=== PATIENT | female | born 1970 | race Native Hawaiian/Other Pacific Islander ===

== ENCOUNTER → 2018-02-07 | Outpatient (CLI) | payer BC ==
--- NOTE | 2018-02-07 11:31 | MM ---
Reason for exam: clinical finding. History: Family history of breast cancer in maternal grandmother at age 60. Indicated problem(s): lump or thickening in the right breast. Physical Findings: Nurse Summary: 1.5cm nodule in the right breast at 10 o'clock (nurse mj). MG Diagnostic Mammo w CAD JUNE Bilateral CC and MLO view(s) were taken. XCCL view(s) were taken of the right breast. No prior studies available for comparison. The breast tissue is heterogeneously dense. This may lower the sensitivity of mammography. Finding #1: There is an intermediate concern, suspicious 13 mm high density, spiculated irregular mass located 11 cm from the nipple in the 10 o'clock upper outer quadrant, axillary tail position of the right breast. Highly suggestive for malignancy. Finding #2: There are intermediate concern, suspicious, fine, grouped/clustered calcifications in the 10 o'clock upper outer quadrant of the right breast consistent with the spiculated mass, 11 cm from the nipple. These results were verbally communicated with the patient and result sheet given to the patient on 02/07/18. ASSESSMENT: Incomplete: need additional imaging evaluation, BI-RAD 0 RECOMMENDATION: Ultrasound of the right breast.
--- NOTE | 2018-02-07 11:37 | USB ---
Reason for exam: clinical finding. History: Family history of breast cancer in maternal grandmother at age 60. US Breast RT Right complete breast ultrasound includes all four quadrants, the retroareolar region and axilla. Finding demonstrates a 1.5 x 1.3 x 1.4cm solid, hypoechoic, vascular lesion at 10 o'clock that correlates with mammographic finding for which a biopsy is recommended, a 1.6 x 1.0 x 2.3cm questionable reactive node at 10 o'clock, a 2.2 x 1.9 x 1.5cm questionable reactive node at the axilla tail, a 1.7 x 1.4 x 1.6cm questionable reactive node at the axilla tail, a 0.6 x 1.1cm lesion between the suspicious mass and the axillary lymph nodes at 10 o'clock and a cystic cluster at 2 o'clock. These results were verbally communicated with the patient and result sheet given to the patient on 02/07/18. ASSESSMENT: Highly suggestive of malignancy, BI-RAD 5 RECOMMENDATION: Ultrasound core biopsy of the right breast. Called Dr. Nielsen with mammographic findings and has scheduled an appointment for the patient for 02/08/18 at 3:[address] Lee. PRELIMINARY REPORT CALLED AND FAXED TO DR. LEE ON 02/07/18.
== END | disposition home or self-care (01) ==
LOC: RADMAMWWP 08:11
PROVIDERS: ATTEND Family Medicine
DX: N63.21 Unspecified lump in the left breast, upper outer quadrant (principal); R92.8 Other abnormal and inconclusive findings on diagnostic imaging of breast
CPT/HCPCS: 77066

== ENCOUNTER → 2018-02-08 | Outpatient (CLI) | payer BC ==
[2018-02-08 16:08] VITALS: BP 153/81; PULSE 100; TEMP 98.1; BMI 25.4
--- NOTE | 2018-02-08 16:31 | P.GSHP ---
History of Present Illness H&P Date: 02/08/18 The patient is a 47-year-old white female who notes that she felt a mass in her right breast several months ago. She thought this was most likely cystic in nature however when it did not go away she had a radiographic evaluation performed. She underwent a bilateral mammogram as well as a right breast ultrasound. On the bilateral mammogram in lesion of concern was noted in the right breast at the 10 o'clock position in the upper quadrant. Additionally she had an ultrasound performed which revealed this area as well as questionable lymphadenopathy. There is also question is whether there is a second lesion in proximity to the lesion seen on mammogram. The patient does have some pain in this area. She has no abnormal nipple discharge or changes of concern. She has no masses in the left breast. Past surgical history: 1. 2. Uterine ablation Past medical history: None Family history: 1. Maternal grandmother breast cancer postmenopausal Menstrual history Menarche: 11 : 2, first at 18, breast fed: none menopause: Irregular periods for which she had an ablation however she did continue to have menstrual periods after the ablation but they are irregular Review of systems: HEENT: Negative Lungs: Negative Heart: Negative GI: Negative : As above Musculoskeletal:arthritis in hands, carpel tunnel Neurologic: Negative Skin: none social history: smoke: 20 years half a pack per day Alcohol: Drugs: Negative - Constitutional Comment: hot flashes at times Constitutional: Denies chills, Denies fever - EENT Eyes: bilateral as per HPI Ears: deny: decreased hearing, ear discharge, earache, tinnitus Ears, nose, mouth and throat: Reports headache, Reports nasal discharge, Reports sinus pain, Reports sinus pressure - Breasts Breasts: bilateral: as per HPI - Cardiovascular Cardiovascular: Denies chest pain, Denies shortness of breath - Respiratory Comment: smoker Respiratory: Denies cough, Denies 7 - Gastrointestinal Gastrointestinal: Denies abdominal pain, Denies diarrhea, Denies nausea, Denies vomiting - Genitourinary (Female) Genitourinary: Denies dysuria, Denies hematuria - Menstruation Menstruation: Reports as per HPI - Musculoskeletal Comment: arthritis in her hands - Integumentary Integumentary: Denies pruritus, Denies rash - Neurological Neurological: Denies numbness, Denies weakness - Psychiatric Psychiatric: Reports anxiety, Reports depression - 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 History of Any Multi-Drug Resistant Organisms: None Reported Past Surgical History: Section, Tubal Ligation, Uterine Ablation Past Anesthesia/Blood Transfusion Reactions: No Reported Reaction, Motion Sickness Past Psychological History: No Psychological Hx Reported Smoking Status: Current every day smoker Past Alcohol Use History: None Reported Past Drug Use History: None Reported - Past Family History Mother Family Medical History: No Reported History Additional Family Medical History / Comment(s): MATERNAL GRANDMOTHER BILATERAL BREAST MASTECTOMY Medications and Allergies Home Medications Medication Instructions Recorded Confirmed Type Ibuprofen [Motrin] 800 mg PO Q8HR PRN 05/15/14 05/15/14 History Iron Injections(Unknown Dose) 1 injection IM DIRECTED 05/15/14 05/15/14 History Percocet(Unknown Dose) 1 tab PO DIRECTED PRN 05/15/14 05/15/14 History Zantac(Unknown Dose) 1 tab PO DAILY PRN 05/15/14 05/15/14 History Allergies Allergy/AdvReac Type Severity Reaction Status Date / Time No Known Allergies Allergy Verified 05/15/14 12:38 Surgical - Exam - General well developed, well nourished, moderate distress - Eyes normal ocular movement - ENT normal pinna, normal nares, normal mucosa, no hearing loss - Neck no masses, trachea midline, no lymphadectomy, no venous distension - Respiratory normal respiratory effort, clear to auscultation - Cardiovascular Rhythm: regular Heart Sounds: normal: S1, S2 - Abdomen Abdomen: soft, non tender, no guarding, no rigid, no rebound
== END | disposition home or self-care (01) ==
LOC: WWCWWP 15:32
PROVIDERS: ATTEND Surgery
DX: Z53.9 Procedure and treatment not carried out, unspecified reason (principal)

== ENCOUNTER → 2018-02-12 | Day surgery (SDC) | payer BC ==
[2018-02-12 09:20] VITALS: RESP 16; TEMP 97.7; BMI 25.0
[2018-02-12 12:18] VITALS: BP 109/66; PULSE 80
--- NOTE | 2018-02-12 13:44 | USB ---
EXAMINATION TYPE: US biopsy breast VAD RT, US breast needle core RT, US breast needle core addl RT, MG diagnostic mammo RT wo CAD DATE OF EXAM: 02/12/2018 CLINICAL HISTORY: R92.8 ABN MAMMO. TECHNIQUE: Three site ultrasound guided core biopsy of right breast. COMPARISON: 02/07/2018 FINDINGS: The procedure of ultrasound guided core biopsy was explained to the patient. Benefits, alternatives, and risks were discussed. An informed consent was then obtained. Preprocedural timeout was performed. Preprocedural scanning was performed. There is redemonstration of two sonographic masses, the first at the 10:00 position corresponding to the palpable abnormality and previously measured at 1.6 x 1.0 x 2.3 cm on the prior exam of 02/07/2018 and the second at the 11:00 position adjacent to multiple abnormal lymph nodes. Both these masses contain microcystic calcifications and are suspicious. Initial image demonstrates that these are located over 5.8 cm apart from one end of the mass to the other. Therefore decision was made to biopsy both of these masses in addition to an abnormal axillary node. Site A (palpable abnormality-1.6 x 1.0 x 2.3 cm mass at the 10:00 position within the right breast): The patient was placed in supine positioning for imaging and for the procedure. The overlying skin was prepped and draped in usual sterile fashion. 10 cc of lidocaine buffered with bicarbonate was used as anesthetic into the skin and subcutaneous tissue in addition to 8 cc of lidocaine with epinephrine utilized to anesthetize the subcutaneous tissues up to area of concern in the right breast. Under ultrasound guidance, a 12-gauge vacuum assisted biopsy gun device was used to obtain 5 core samples. Following this, a coil shaped biopsy marker was left in lesion. Site B (Deep mass measuring approximately 1.4 x 1.6 cm within the right axilla) : The patient was placed in supine positioning for imaging and for the procedure. The overlying skin was prepped and draped in usual sterile fashion. 5 cc of lidocaine buffered with bicarbonate was used as anesthetic into the skin and subcutaneous tissue as well as 5 cc of lidocaine with epinephrine up to area of concern in the right breast. Under ultrasound guidance, a 16-gauge Temno biopsy gun device was used to obtain 3 core samples. Following this, a ribbon shaped biopsy marker was left in lesion. Site C: The patient was placed in supine positioning for imaging and for the procedure. The overlying skin was prepped and draped in usual sterile fashion. 5 cc of lidocaine buffered with bicarbonate was used as anesthetic into the skin and subcutaneous tissue as well as 5 cc of lidocaine with epinephrine up to area of concern in the right breast. A susan was made with surgical scalpel. Under ultrasound guidance, a 18-gauge SoapBox Soapsno biopsy gun device was used to obtain 3 core samples. Following this, a hydromark biopsy marker was left in lesion. The patient tolerated the procedure well without any immediate complication. The patient was kept in the radiology department for short stay after the procedure and then discharged home in stable condition. Postprocedural mammogram demonstrates appropriate placement of the coil clip within the most anterior palpable mass, however the ribbon clip and hydromark clips were not utilized mammographically due to their deep placement within the right axilla. These were visualized sonographically upon deployment. IMPRESSION: Successful, uncomplicated three site ultrasound guided core biopsy of two highly suspicious masses as described above within the right breast and an abnormal-appearing right axillary lymph node, full pathology results to follow. Pathology Results: Malignant A. 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 Immunohistochemical stains for E-Cadherin support ductal differentiation; extracellular matrix expression is highlighted by Alcian Blue and PAS/Alcian Blue sections with good stain performance for all studies being documented on control sections. B. RIGHT BREAST SITE B (11:00 POSITION), BIOPSIES: Poorly differentiated (Grade 3) infiltrating duct carcinoma with extra cellular matrix formation, please seen Surgical Pathology Cancer Case Summary. Unremarkable skeletal muscle fragments. C. RIGHT BREAST SITE C (11:00 NODE), NEEDLE BIOPSIES: Poorly differentiated ( Grade 3) infiltrating duct carcinoma associated with lymphoid tissue consistent with lymph node involvement in the proper clinical setting. Recommendation Surgical consult if the right breast. (all sites malignant) MTDD
== END ==
LOC: RADUSWWP 08:59
PROVIDERS: ATTEND Surgery
DX: C50.411 Malignant neoplasm of upper-outer quadrant of right female breast (principal)
CPT/HCPCS: 88305; 88313; 88342; 77065; 19083; 19084; A4648; J2001

== ENCOUNTER → 2018-02-16 | Outpatient (CLI) | payer BC ==
--- NOTE | 2018-03-08 15:11 | P.PN ---
Progress Note - Text Progress Note Date: 02/16/18 The patient is status post a core biopsy of the right breast in two locations as well as the right axilla. The results are poorly differentiated infiltrating grade 3 carcinoma. The results were discussed with both she and her . It was discussed that she should see a medical oncologist and undergo pre-operative chemotherapy. She is very anxious but has agreed to see Dr. Mahan. biospy site: puncture sites clean and dry no evidence of infection Mckenna Skinner was called and directed the patient to Dr. Mahan's office. The patient will follow up here after seen by DR. Mahan. Her case will be presented at tumor board. cc: Steven Nielsen
== END ==
LOC: WWCWWP 12:07
PROVIDERS: ATTEND Surgery
DX: Z53.9 Procedure and treatment not carried out, unspecified reason (principal)

== ENCOUNTER → 2018-02-17 | Outpatient (CLI) | payer BC ==
--- NOTE | 2018-02-20 07:47 | PE ---
EXAMINATION TYPE: PET CT fusion skull to thigh DATE OF EXAM: 02/17/2018 COMPARISON: Breast exams dating back to 02/07/2018. CT abdomen pelvis dated 08/21/2013. HISTORY: Biopsy proven right breast multifocal upper outer quadrant poorly differentiated (grade 3) i nfiltrating ductal carcinoma with biopsy-proven axillary lymph node involvement. Initial staging exam . (Initial treatment strategy-PI). TECHNIQUE: Following the intravenous administration of 14.39 mCi of F-18 FDG, whole body images are performed from the skull base to the midthigh. Images are reviewed on the computer in the coronal, a xial, and sagittal planes. Reconstructed rotating images are created on independent workstation and reviewed on the computer. A localization and attenuation correction CT is performed in conjunction with the PET scan. SCAN: Initial. Staging. FINDINGS: Thoracic background: 1.65 Abdominal background: 2.49 SKULL BASE AND NECK: No suspicious hypermetabolic uptake. CHEST, MEDIASTINUM, AND HILAR REGION: There are multiple hypermetabolic right axillary lymph nodes wi th the first on series 5 image 58 measuring 1.2 cm in short axis (maximum SUV of 4.49). The second is seen on series 5 image 64 measuring 1.0 cm in short axis (maximum SUV of 4.1). Biopsy-proven abnorma l rounded morphology metastatic lymph node containing a radiopaque biopsy marker is seen on image 70 of series 5 measuring 1.3 cm in short axis (maximum SUV of 4.69). Additionally on this image more lat erally and mass measuring 1.4-1.5 cm with adjacent biopsy marker on image 72 represents the multifoca l breast carcinoma deeper site (maximum SUV of 3.12). The more superficial and inferior site containi ng a biopsy marker is seen on image 80 measuring 1.1 cm with a maximum SUV of 2.58. No other areas of hypermetabolic uptake are seen within the left axilla or within either breast. Of note on ultrasound the largest mass measured 1.9 cm. No suspicious hypermetabolic uptake within the lungs. No suspicious hypermetabolic uptake within the mediastinum or abnormal-appearing mediastinal lymph nodes. ABDOMEN AND PELVIS: No suspicious hypermetabolic uptake. OSSEOUS STRUCTURES: No suspicious hypermetabolic uptake. Symmetric arthropathy of shoulders has a max imum SUV of 2.33 on the right and 2.[address] OTHER CT: Bibasilar subsegmental atelectasis is identified. No suspicious pulmonary nodule or mass is seen. No focal consolidation. Osseous structures appear intact with no suspicious lesion. Unenhanced liver, spleen, adrenal glands, kidneys, and pancreas are unremarkable morphology. Left ovarian nonhy permetabolic probable cyst versus dominant follicle is incidentally noted. No dilated bowel is seen. No gross evidence of greater than 1 cm short axis lymph node within the abdomen or pelvis. No mediast inal adenopathy is appreciated. Ascending thoracic aorta is within normal limits. IMPRESSION: Biopsy-proven multifocal right upper outer quadrant poorly differentiated infiltrating du ctal carcinoma is hypermetabolic as is the biopsy-proven right axillary adenopathy. No internal mamma ry adenopathy or evidence of visceral metastasis. No suspicious osseous lesions. Staging on this PET/ CT corresponds to [id number].
== END | disposition home or self-care (01) ==
LOC: RADPETMAIN 13:17
PROVIDERS: ATTEND Internal Medicine Hematology & Oncology
DX: C50.919 Malignant neoplasm of unspecified site of unspecified female breast (principal)
CPT/HCPCS: 78815; A9552

== ENCOUNTER → 2018-02-21 | Outpatient (CLI) | payer BC ==
--- NOTE | 2018-02-22 15:37 | ECHOF ---
Referral Reason:C50.919 Breast CA, Chemo Z01.818 MEASUREMENTS -------- HEIGHT: 160.0 cm WEIGHT: 68.0 kg BP: RVIDd: 2.6 cm (< 3.3) IVSd: 1.3 cm (0.6 - 1.1) LVIDd: 4.2 cm (3.9 - 5.3) LVPWd: 1.2 cm (0.6 - 1.1) IVSs: 1.7 cm LVIDs: 2.8 cm LVPWs: 1.5 cm LAESV Index (A-L): 30.27 ml/m Ao Diam: 2.6 cm (2.0 - 3.7) AV Cusp: 1.9 cm (1.5 - 2.6) LA Diam: 3.4 cm (2.7 - 3.8) EPSS: 0.5 cm MV E Shmuel: 0.91 m/s MV DecT: 316 ms MV A Shmuel: 0.85 m/s MV E/A Ratio: 1.07 RAP: 10.00 mmHg RVSP: 22.24 mmHg MV EF SLOPE: 60.47 mm/s (70 - 150) MV EXCURSION: 1.34 cm (> 18.000) FINDINGS -------- Sinus rhythm. This was a technically good study. The left ventricular size is normal. There is mild concentric left ventricular hypertrophy. Overa ll left ventricular systolic function is normal with, an EF between 55 - 60 %. The right ventricle is normal in size and function. LA is midly dilated 29-33ml/m2. The right atrium is normal in size. The aortic valve is trileaflet, and appears structurally normal. No aortic stenosis or regurgitation. Mild mitral annular calcification present. There is trace mitral regurgitation. Trace tricuspid regurgitation present. Right ventricular systolic pressure is normal at < 35 mmHg. There is no evidence of pulmonary hypertension. The pulmonic valve is normal. The aortic root size is normal. The IVC is dilated with normal collapse. There is no pericardial effusion. CONCLUSIONS -------- 1. Sinus rhythm. 2. This was a technically good study. 3. The left ventricular size is normal. 4. There is mild concentric left ventricular hypertrophy. 5. Overall left ventricular systolic function is normal with, an EF between 55 - 60 %. 6. LA is midly dilated 29-33ml/m2. 7. The aortic valve is trileaflet, and appears structurally normal. No aortic stenosis or regurgitati on. 8. Mild mitral annular calcification present. 9. There is trace mitral regurgitation. 10. Trace tricuspid regurgitation present. 11. Right ventricular systolic pressure is normal at < 35 mmHg. 12. There is no evidence of pulmonary hypertension. 13. The aortic root size is normal. 14. The IVC is dilated with normal collapse. 15. There is no pericardial effusion. TECHNICAL WRITING LEAD/MGR: Michael Jang RDCS
== END ==
LOC: RADECHMAIN 12:46
PROVIDERS: ATTEND Internal Medicine Hematology & Oncology
DX: Z01.818 Encounter for other preprocedural examination (principal); C50.919 Malignant neoplasm of unspecified site of unspecified female breast
CPT/HCPCS: 93306

== ENCOUNTER 2018-02-23 11:32 | Day surgery (SDC) | payer BC ==
[2018-02-22 08:18] VITALS: BMI 26.2
[~2018-02-23 11:32] MED LIST: DEXAMETHASONE SOD PHOSPHATE 10 MG/ML 1 ML VIAL IV ONE; HEPARIN SODIUM,PORCINE 5,000 UNIT/ML 1 ML VIAL SQ ONE; LACTATED RINGERS 1,000 ML IV SCH; MIDAZOLAM 2 MG/2 ML VIAL IV PRN; ONDANSETRON 4 MG/2 ML VIAL IVP ONE; Pre Op ABX Message 1 EACH MISC MISCELLANE ONE; SCOPOLAMINE 1.5MG/72HR PATCH TRANSDERM ONE; fentaNYL (PF) 50 MCG/ML 2 ML AMP IV PRN
[2018-02-23 12:08] VITALS: RESP 16; TEMP 98.1
--- NOTE | 2018-02-23 13:47 | P.GSHP ---
History of Present Illness H&P Date: 02/23/18 Chief Complaint: Right breast cancer Patient recently diagnosed with right breast cancer. Here today for Port-A- Cath placement. She is to begin chemotherapy next Monday. No previous port. Past Medical History Past Medical History: Cancer, GERD/Reflux, Osteoarthritis (OA) Additional Past Medical History / Comment(s): migraines, anemia, breast cancer History of Any Multi-Drug Resistant Organisms: None Reported Past Surgical History: Breast Surgery, Section, Tubal Ligation, Uterine Ablation Additional Past Surgical History / Comment(s): rt breast biopsy Past Anesthesia/Blood Transfusion Reactions: Motion Sickness Smoking Status: Current every day smoker - Past Family History Mother Family Medical History: No Reported History Additional Family Medical History / Comment(s): MATERNAL GRANDMOTHER BILATERAL BREAST cancer Brother(s) Family Medical History: Deep Vein Thrombosis (DVT) Medications and Allergies Home Medications Medication Instructions Recorded Confirmed Type oxyCODONE-APAP 10-325MG [Percocet 1 tab PO Q6HR PRN 05/15/14 02/23/18 History 10-325 mg] Allergies Allergy/AdvReac Type Severity Reaction Status Date / Time No Known Allergies Allergy Verified 02/23/18 12:02 Surgical - Exam Vital Signs Temp Pulse Resp BP Pulse Ox 98.1 F 83 16 131/69 99 02/23/18 12:07 02/23/18 12:07 02/23/18 12:07 02/23/18 12:07 02/23/18 12:07 Physical exam: General: Well-developed, well-nourished HEENT: Normocephalic, sclerae nonicteric Abdomen: Nontender, nondistended Extremities: No edema Neuro: Alert and oriented Assessment and Plan (1) Breast cancer, right Narrative/Plan: Will proceed with Port-A-Cath placement at this time. Risks of bleeding, infection, DVT, pneumothorax, catheter malfunction, anesthesia related complications were discussed. The patient understands and wishes to proceed. Current Visit: Yes Status: Acute Code(s): C50.911 - MALIGNANT NEOPLASM OF UNSP SITE OF RIGHT FEMALE BREAST SNOMED Code(s): 450813404
[2018-02-23] MEDS ORDERED: MIDAZOLAM 2 MG/2 ML VIAL ONE (14:13)
[2018-02-23] MEDS ORDERED: PROPOFOL 10 MG/ML 20 ML VIAL IV ONE (14:13)
[2018-02-23] MEDS ORDERED: KETAMINE 10 MG/ML 20 ML VIAL ONE (14:13)
[2018-02-23] MEDS ORDERED: SODIUM CHLORIDE 0.9% 50 ML with ceFAZolin 2,000 MG IV ONE ×2 (14:13)
[2018-02-23] MEDS ORDERED: fentaNYL (PF) 50 MCG/ML 2 ML AMP ONE (14:13)
[2018-02-23] MEDS ORDERED: HEPARIN SODIUM,PORCINE 100 UNIT/ML 5 ML VIAL IV ONE (14:26)
[2018-02-23] MEDS ORDERED: LIDOCAINE 1% INJ 10MG/ML (20 ML MDV) SQ ONE ×2 (14:26)
[2018-02-23] MEDS ORDERED: HYDROcodone/APAP 5-325MG 1 EACH TAB PO PRN (15:08)
[2018-02-23] MEDS ORDERED: NALOXONE 0.4 MG/ML 1 ML VIAL IV PRN (15:08)
--- NOTE | 2018-02-23 15:08 | P.OP ---
Date of Procedure: 02/23/18 Procedure(s) Performed: PREOPERATIVE DIAGNOSIS: Right breast cancer POSTOPERATIVE DIAGNOSIS: Same PROCEDURE: Port-A-Cath placement SURGEON: Petar EBL: Minimal ANESTHESIA: Sedation COMPLICATIONS: None OPERATIVE PROCEDURE: Patient was brought and placed on the operative table in the supine position. The patient was sedated per anesthesia that time. The chest and neck were prepped and draped in usual sterile fashion. The ultrasound probe was used to identify the location of the left internal jugular vein. The skin was localized with lidocaine. The Seldinger needle was advanced into the IJ under ultrasound guidance. The wire was advanced through the needle under fluoroscopic guidance into the superior vena cava. A port pocket was created in the left infraclavicular location. The catheter was tunneled from the wire entrance site to the port pocket. The port was then connected to the catheter. The dilator introducer was threaded over the guidewire. The guidewire and dilator were then removed. The catheter was advanced through the introducer and introducer was then removed. The tip was seen to be in the right atrial junction. Port was flushed with both saline and a Hep-Lock solution. There was good flow both in and out of the port. The port was sutured in underlying tissues using 3-0 silk sutures. The subcutaneous tissues were reapproximated using 3-0 Vicryl sutures and the skin at both locations using 4-0 Monocryl sutures. Steri-Strips and sterile dressings then applied. DISPOSITION: Stable to recovery room
--- NOTE | 2018-02-23 15:24 | XR ---
EXAMINATION TYPE: XR chest 1V confirm line [facility] [place] DATE OF EXAM: 02/23/2018 COMPARISON: NONE HISTORY: Port-A-Cath insertion. TECHNIQUE: Single frontal view of the chest is obtained. FINDINGS: There is a left-sided Mediport placed with its distal tip in the superior vena cava. Mild p atchy bibasilar airspace disease likely represents atelectasis. Minimal acromioclavicular arthropathy is seen bilaterally. There is no pulmonary vascular congestion, pleural effusion, or pneumothorax se en. The cardiac silhouette size is within normal limits. The osseous structures are intact. IMPRESSION: Left-sided Mediport terminating in the superior vena cava. Minimal bibasilar airspace di sease likely represents atelectasis.
--- NOTE | 2018-02-23 15:45 | FL ---
EXAMINATION TYPE: FL guided central line placemt DATE OF EXAM: 02/23/2018 CLINICAL HISTORY: Left-sided Mediport placement fluoroscopy. TECHNIQUE: Fluoroscopy. COMPARISON: None. FINDINGS/IMPRESSION: Fluoroscopic guidance was provided during procedure performed by Dr. Davey. A total of 49 seconds of fluoroscopic time was utilized during the procedure and 1 spot images was acqu ired during placement of a left-sided Mediport.
[2018-02-23 15:50] VITALS: BP 126/68; PULSE 78
== END 2018-02-23 15:54 | disposition home or self-care (01) ==
LOC: OR 11:32
PROVIDERS: ATTEND Surgery
DX: C50.411 Malignant neoplasm of upper-outer quadrant of right female breast (principal); M19.90 Unspecified osteoarthritis, unspecified site; K21.9 Gastro-esophageal reflux disease without esophagitis; G43.909 Migraine, unspecified, not intractable, without status migrainosus; F17.210 Nicotine dependence, cigarettes, uncomplicated; Z80.3 Family history of malignant neoplasm of breast; Z98.51 Tubal ligation status
CPT/HCPCS: 81025; 77001; 36561; C1788; J2250; J1644; J1642; J1100; J2405; J2001; J3010; J0690; J2704

== ENCOUNTER → 2018-07-12 | Outpatient (CLI) | payer BC ==
[2018-07-12 12:21] VITALS: BP 117/79; PULSE 75; RESP 16; TEMP 97.9; BMI 26.8
--- NOTE | 2018-07-12 12:50 | P.GSHP ---
History of Present Illness H&P Date: 07/12/18 Chief Complaint: right breast cancer The patient is a 48-year-old white female who was diagnosed February 12 with a tripple negative right breast cancer. She received neoadjuvant chemotherapy which she has now completed. She initially was noted to have an ultrasound core biopsy of a lymph node on the right side positive as well. The patient finished her chemotherapy June 07. She is now ready for surgical intervention. She had 8 treatments for 16 weeks. Family History: 1. maternal grandmother: breast cancer from metastatic breast cancer in her 60's Hormonal: menarche: 9 : 2, 3 children, breast fed no menopause: stopped 1 year ago/ablation done for bleeding BCP: 1 year hormones: none Past Surgical History: 1. tubaligation 2. NOVI 3. port placed Past Medical History: 1. blood transfusion/uterine bleeding Social History: smoke: 1/2 PPD alcohol: none drugs: none - Constitutional Constitutional: Denies chills, Denies fever - EENT Eyes: bilateral blurred vision, denies pain Ears: deny: decreased hearing, tinnitus Ears, nose, mouth and throat: Denies headache, Denies sore throat - Breasts Breasts: bilateral: as per HPI - Cardiovascular Cardiovascular: Denies chest pain, Denies shortness of breath - Respiratory Respiratory: Denies cough, Denies 7 - Gastrointestinal Gastrointestinal: Denies abdominal pain, Denies diarrhea, Denies nausea, Denies vomiting - Genitourinary (Female) Genitourinary: Denies dysuria, Denies hematuria - Menstruation Menstruation: Reports postmenopausal - Musculoskeletal Comment: arthritis in her hands - Integumentary Integumentary: Denies pruritus, Denies rash - Neurological Neurological: Denies numbness, Denies weakness - Psychiatric Psychiatric: Denies anxiety, Denies depression - Endocrine Endocrine: Denies fatigue, Denies weight change - Hematologic/Lymphatic Comment: none - Allergic/Immunologic Allergic/Immunologic: Reports seasonal allergies Past Medical History Past Medical History: Cancer, GERD/Reflux, Osteoarthritis (OA) Additional Past Medical History / Comment(s): migraines, anemia, breast cancer History of Any Multi-Drug Resistant Organisms: None Reported Past Surgical History: Breast Surgery, Section, Tubal Ligation, Uterine Ablation Additional Past Surgical History / Comment(s): rt breast biopsy Past Anesthesia/Blood Transfusion Reactions: Motion Sickness Past Psychological History: No Psychological Hx Reported Smoking Status: Current every day smoker Past Alcohol Use History: Rare Additional Past Alcohol Use History / Comment(s): smokes 1/2 PPD for 20 yrs Past Drug Use History: None Reported Additional Drug Use History / Comment(s): start smoking year 1997 - Past Family History Mother Family Medical History: No Reported History Additional Family Medical History / Comment(s): MATERNAL GRANDMOTHER BILATERAL BREAST cancer Brother(s) Family Medical History: Deep Vein Thrombosis (DVT) Medications and Allergies Home Medications Medication Instructions Recorded Confirmed Type oxyCODONE-APAP 10-325MG [Percocet 1 tab PO Q6HR PRN 05/15/14 07/12/18 History 10-325 mg] Dextroamphetamine/Amphetamine 30 mg PO BID 07/12/18 07/12/18 History [Adderall] Vitamin C/Biotin [Hair, Skin and 1 tab PO BID 07/12/18 07/12/18 History Nails] Allergies Allergy/AdvReac Type Severity Reaction Status Date / Time No Known Allergies Allergy Verified 07/12/18 12:14 Surgical - Exam Vital Signs Temp Pulse Resp BP Pulse Ox 97.9 F 75 16 117/79 96 07/12/18 12:17 07/12/18 12:17 07/12/18 12:17 07/12/18 12:17 07/12/18 12:17 BMI 26.8 - General well developed, well nourished, no distress - Eyes normal ocular movement - ENT no hearing loss, no congestion - Neck no masses, trachea midline - Respiratory normal respiratory effort, clear to auscultation - Cardiovascular Rhythm: regular Heart Sounds: normal: S1, S2 - Abdomen Abdomen: soft, non tender, no guarding, no rigid, no rebound - Integumentary no rash, no abnormal pigmentation - Neurologic no disoriented, no combative - Musculoskeletal normal gait, normal posture - Psychiatric oriented to time, oriented to person, oriented to place, speech is normal, memory intact Breast Exam: right breast: Multi-positional exam fullness in the upper outer quadrant no definite discrete masses Right axilla: No adenopathy noted on today's exam Left breast: Multi-positional exam no dominant masses or nodules of concern Left axilla: No adenopathy of concern Results PET scan revealed no evidence of metastatic disease Assessment and Plan Assessment: Impression: 1. Patient with T1 cN1 M0 right breast cancer 2. I discussed the case with Dr. Mahan patient desires bilateral skin sparing mastectomy 3. Status post uterine ablation for bleeding Plan: 1. Appointment with plastic surgery 2. Bilateral skin sparing mastectomy/right breast axillary disection 3. medical management of medical conditions Risk and benefits of the procedure discussed with the patient and her . They wish to proceed. CC: Dr. Hays ( [place])
--- NOTE | 2018-07-12 13:01 | P.PN ---
Progress Note - Text Progress Note Date: 07/12/18 The patient's case has been discussed with Dr. Mahan from medical oncology. He feels that a sentinel node biopsy is adequate with axillary dissection if the sentinel node is positive. Additionally he concurs that surgery by August 14 is reasonable as we are awaiting plastic surgery consultation. We have discussed skin sparing rather than nipple sparing mastectomy secondary to the size of the breast as well as the fact that the patient is a smoker.
== END | disposition home or self-care (01) ==
LOC: WWCWWP 11:53
PROVIDERS: ATTEND Surgery
DX: Z53.9 Procedure and treatment not carried out, unspecified reason (principal)

== ENCOUNTER 2018-08-14 07:10 | Inpatient (IN) | payer BC ==
[2018-08-09 13:40] VITALS: BMI 26.6
[~2018-08-14 07:10] MED LIST changes: -HEPARIN SODIUM,PORCINE 5,000 UNIT/ML 1 ML VIAL SQ ONE; -LACTATED RINGERS 1,000 ML IV SCH; +LIDOCAINE 1% 20 ML VIAL (10MG/ML) FOR IV START INTRADERMA PRN; -MIDAZOLAM 2 MG/2 ML VIAL IV PRN; -fentaNYL (PF) 50 MCG/ML 2 ML AMP IV PRN
[2018-08-14] MEDS: LACTATED RINGERS 1,000 ML IV SCH ×2 (07:54→21:37)
[2018-08-14] MEDS: MIDAZOLAM 2 MG/2 ML VIAL IV ONE ×2 (08:36→16:00)
[2018-08-14] MEDS ORDERED: fentaNYL (PF) 50 MCG/ML 2 ML AMP ONE (08:54)
[2018-08-14] MEDS ORDERED: ROPIVACAINE 5 MG/ML 30 ML VIAL ONE (08:54)
[2018-08-14] MEDS ORDERED: ePHEDrine SULFATE/0.9% NACL/PF 50 MG/5 ML SYRINGE IV ONE (08:54)
[2018-08-14] MEDS ORDERED: HYDROmorphone (PF) 1 MG/ML ONE (08:54)
[2018-08-14] MEDS ORDERED: LIDOCAINE 1% INJ 10MG/ML (20 ML MDV) ONE (08:54)
[2018-08-14] MEDS ORDERED: MIDAZOLAM 2 MG/2 ML VIAL ONE (08:54)
[2018-08-14] MEDS ORDERED: ONDANSETRON 4 MG/2 ML VIAL ONE (08:54)
[2018-08-14] MEDS ORDERED: SUCCINYLCHOLINE CHLORIDE 100 MG/5 ML SYR IV ONE (08:54)
[2018-08-14] MEDS ORDERED: PROPOFOL 10 MG/ML 20 ML VIAL IV ONE (08:54)
[2018-08-14] MEDS ORDERED: HEPARIN SODIUM,PORCINE 5,000 UNIT/ML 1 ML VIAL SQ ONE ×2 (09:10→13:55)
[2018-08-14] MEDS ORDERED: SODIUM CHLORIDE 0.9% 50 ML with ceFAZolin 2,000 MG IV ONE ×2 (09:16)
[2018-08-14] MEDS ORDERED: LACTATED RINGERS 1,000 ML IV ONE ×3 (10:06→14:24)
--- NOTE | 2018-08-14 13:39 | P.ONQ ---
Anesthesiology Proc Note - PNB - Peripheral Nerve Block Performed Bilateral Single Time Out Performed: Yes (b/l pec1 and pec2) Procedure Start Time: 08:36 Procedure Stop Time: 08:43 Indication: Acute Post-Operative Pain, Requested by physician Sedation Type: Sedate with meaningful contact maintained Preparation: Sterile Prep Needle Size: 50mm (2") Needle Gauge: 21 Technique: Ultrasound Injectate: 0.5% Ropivacaine (see comment for volume) (ropi .5% 15cc for each block) Blood Aspirated: No Pain Paresthesia on Injection Noted: No Resistance on Injection: Normal Events: Uneventful and Well Tolerated
--- NOTE | 2018-08-14 14:01 | P.NAPBC ---
[facility] Queries - [facility] Queries Was patient's case review presented at [facility] tumor board? If no, comment.: Yes Was patient's pathology reviewed at [facility]? If no, comment.: Yes Was breast conservation surgery offered? If no, comment.: Yes (patient wished bilateral mastectomy) Was sentinel node biopsy offered? If no, comment.: Yes (After review recommended for axillary node dissection) Was diagnosis confirmed by percutaneous core biopsy? If no, comment.: Yes If mastectomy patient, was a preop referral to a reconstructive surgeon offered? : Yes [facility] Comments: Patient's rate Review with radiology and case was discussed with medical oncology and radiation oncology. The fact that the patient had multiple lymph nodes identified preoperatively with only one being biopsied which was positive it was recommended she undergo a completion axillary dissection.
[2018-08-14] MEDS ORDERED: BENZOCAINE/MENTHOL LOZENG 1 EACH LOZENGE MUCOUS MEM PRN (14:47)
[2018-08-14] MEDS ORDERED: CALCIUM CARBONATE 500 MG CHEWABLE PO PRN (14:47)
[2018-08-14] MEDS ORDERED: ONDANSETRON 4 MG/2 ML VIAL IVP PRN (14:47)
[2018-08-14] MEDS ORDERED: NALOXONE 0.4 MG/ML 1 ML VIAL IV PRN (14:47)
[2018-08-14] MEDS ORDERED: HYDROcodone/APAP 5-325MG 1 EACH TAB PO PRN (14:47)
--- NOTE | 2018-08-14 14:47 | P.OP ---
Date of Procedure: 08/14/18 Preoperative Diagnosis: Right breast cancer, right breast positive axillary adenopathy, status post neoadjuvant chemotherapy Postoperative Diagnosis: Same Procedure(s) Performed: Right axillary node dissection, bilateral breast skin sparing mastectomy, bilateral immediate reconstruction Anesthesia: EMERSON Surgeon: Ana Laura Lee Estimated Blood Loss (ml): 40 IV fluids (ml): 2,800 Urine output (ml): 930 Pathology: other (Bilateral breast, right axillary contents) Condition: stable Disposition: PACU Indications for Procedure: Right breast cancer, positive axillary node on core biopsy preoperative, status post neoadjuvant chemotherapy Operative Findings: Dense breast tissue, firm axillary nodes Description of Procedure: The patient is a 48-year-old white female who is status post core biopsy diagnosis of right breast cancer, and positive right axillary adenopathy on core biopsy. She received neoadjuvant chemotherapy. Initially entertained the thought of doing only a sentinel node biopsy of the axilla however upon review of her free chemotherapy radiographs it was felt that there were multiple nodes which were suspicious. Therefore after discussion with medical and radiation oncology it was determined to go with the axillary node dissection. The patient was taken to the operating room and following induction of general anesthesia both breasts and the right axilla were prepped and draped in a sterile fashion. The right axilla was approached initially. An incision was made and superior skin flap was developed. Dissection was carried down to the pectoralis major muscle. Pectoralis minor muscle area was identified and dissection was carried superiorly to the axillary vein. The axillary tissues were then swept inferiorly being careful to identify and preserve the subscapular vessels. Several small veins were noted exiting from the area of the axillary vein and these were ligated and divided. The thoracodorsal and long thoracic nerves were identified and preserved. The axillary contents were swept inferiorly and removed. At least one intercostal brachial nerve was preserved. After assured that hemostasis was attained the wound was well irrigated. A REBECCA drain was placed. The deep tissues were closed with 3-0 Vicryl suture. The skin was closed with 4-0 Monocryl. The right breast was approached. A circum-areolar incision was made. Circumferential skin flaps were developed down to the area of the chest wall. We were careful to maintain hemostasis using the electrocautery device as well as the Harmonic scalpel. Dissection was then performed from the chest wall from medial to lateral again maintaining hemostasis using the Harmonic scalpel. The breast was then removed. After we were assured that hemostasis was attained the wound was packed. The left breast was then approached after gowns instruments and gloves had been changed. A circumareolar incision was made. Circumferential skin flaps were developed down to the area of the chest wall. We were careful to maintain hemostasis using electrocautery device as well as the Harmonic scalpel. Dissection was then performed from the chest wall from medial to lateral again maintaining hemostasis using the Harmonic scalpel. The breast was then removed. After assured that hemostasis was attained the wound was packed. Dr. Cosme was called into the room to begin the immediate reconstruction.
[2018-08-14] MEDS: HYDROmorphone 0.5 MG/0.5 ML SYRINGE IVP PRN ×5 (14:57→16:05)
[2018-08-14] MEDS ORDERED: KETOROLAC 30 MG/ML 1 ML VIAL IVP ONE (15:21)
[2018-08-14] MEDS: HYDROmorphone 1 MG/ML 1 ML SYRINGE IV PRN ×2 (17:23→20:43)
[2018-08-14] MEDS: DEXTROSE 5%-0.45% NACL 1,000 ML IV SCH (18:12)
[2018-08-14] MEDS: ceFAZolin 1,000 MG in DEXTROSE/WATER 1 50ML.BAG IVPB SCH (18:13)
[2018-08-14] MEDS ORDERED: NICOTINE POLACRILEX 2 MG GUM BUCCAL PRN (20:38)
[2018-08-14] MEDS: HEPARIN SODIUM,PORCINE 5,000 UNIT/ML 1 ML VIAL SQ SCH (21:23)
[2018-08-14] MEDS: NICOTINE 21MG/24HR PATCH TRANSDERM SCH (21:23)
--- NOTE | 2018-08-14 23:54 | OP ---
OPERATIVE REPORT DATE OF SURGERY: August 14, 2018. SURGEON: Rashaad Zamora. PREOPERATIVE DIAGNOSES: 1. Invasive breast cancer, right breast. 2. Acquired loss right and left breast. POSTOPERATIVE DIAGNOSES: 1. Invasive breast cancer, right breast. 2. Acquired loss right and left breast. OPERATIVE PROCEDURES: 1. Immediate reconstruction left breast following mastectomy with insertion of tissue single pass soil stabilizer operator subsequent outpatient expansion. 2. Immediate reconstruction right breast following mastectomy with insertion tissue single pass soil stabilizer operator subsequent outpatient expansion. 3. Implantation of reconstructive graft for right and left breast reconstruction. OPERATIVE INDICATIONS: Patient is a 48-year-old female with invasive breast cancer of the right breast. She has had neoadjuvant chemotherapy. She was referred to my care for breast reconstruction. The patient plans bilateral mastectomies and modified radical mastectomy will be performed on the right and simple mastectomy on the left. The patient has elected to proceed with tissue single pass soil stabilizer operator style reconstruction. Understands the staged nature of reconstructive surgery as well as potential risks and complications related to the surgery. She has requested I perform the surgery. OPERATIVE PROCEDURE SUMMARY: The patient was seen in the presurgical area. Markings made, procedure reviewed. All questions answered. She was transferred to the operative room where she was placed in supine position. Following induction general tracheal anesthesia, the patient is prepped and draped in usual fashion. Dr. Bradley and her surgical team then proceeded with the right axillary lymph node dissection and right mastectomy and then left mastectomy. Once these procedures were completed, I enter the procedure, the patient is under general endotracheal anesthesia in supine position. All sponge and needle counts of prior procedures were correct. The laparotomy pads for the right and left mastectomy sites were removed. There was no active bleeding. Each site was irrigated. The surgery was initiated on the left side. The pectorals major muscle was identified at the lateral border where it joined the chest wall. Loose areolar connective tissue divided with cautery allowing entry into the potential plane between the pectorals major and minor muscles which were bluntly developed. Medial attachment fibers of the pectoralis major muscle to ribs released but not sternal. All inferior attachments of the pectorals major muscle to ribs were released with cauterization. The muscle was not sufficient for coverage of reconstructive implant. Additional muscle tissue was required inferior medially rectus abdominis muscle and fascia inferior latter laterally. External abdominal oblique muscle and fascia and laterally serrated anterior muscle fascia were all elevated with cautery through this approach. Hemostasis maintained with cautery. The site was packed open with multiple laparotomy sponges. Attention was turned toward the right side. Again, the pectorals major muscle was identified where it joined the chest wall on the lateral aspect. Loose areolar connective tissue divided with cautery here allowing entry into the potential plane between the pectorals major and minor muscles which were bluntly developed. Medial attachment fibers of the pectorals major muscle to ribs were loosened with cauterization but not sternal attachments. Inferiorly all pectorals major muscle attachments to the ribs were released with cautery. Again, the muscle was not sufficient for coverage of reconstructive implant. Additional muscle tissue was recruited inferior medially rectus abdominis muscle fascia inferolaterally external abdominal oblique muscle and fascia and laterally serrated anterior muscle and fascia were all elevated through this approach with cauterization maintaining hemostasis with cautery. Excellent hemostasis present on both sides. Both cavities were remeasured and irrigated. Gloves were changed. The tissue single pass soil stabilizer operator opened on the field. Both expanders were from the mentor profile model, reference number BPRN61-8 Rh with a volume of 600 mL. The left-sided device serial number was [id number] and the right- sided device, serial number was [id number]. The left-sided device was opened first, only handled by surgeon. All air was extracted. 50 mL 0.9 normal saline instilled is inserted in reconstructive cavity under direct vision. Once optimally positioned, attention was turned towards the right side. The right-sided single pass soil stabilizer operator was now opened and again only handled by surgeon. All air is extracted. 50 mL 0.9 normal saline instilled is inserted in the reconstructive submuscular pocket created under direct vision. Once both expanders were optimally positioned and with symmetry, the muscle flap tissue could not be approximated over the implants without significant tension. Therefore SurgiMend reconstructive graft measuring 10 x 15 cm thin and fenestrated was opened on the field. Revitalized in room temperature saline. Once ready it was divided into 2 equal portions and SurgiMend was placed deep to the muscle flap tissue spanning the area where muscle flap closure would be too tight on the right and left side in a modified inferior sling technique. The SurgiMend was inset to the muscle flap tissue using interrupted and short running 3-0 Vicryl sutures. Complete coverage of each single pass soil stabilizer operator was now obtained. Additional saline was added to each single pass soil stabilizer operator making the final volume 250 mL for each side. Irrigations performed. Two 19 round Oscar channel drains opened on the field. One drain placed in each reconstructive site deep to the mastectomy flaps, but above the muscle flap area and brought separate stab incision. The right and left anterior lateral chest wall and sutured in place with 2-0 Prolene. The mastectomy approach had been through a circumareolar incision. Pursestring style closure was now performed using 2-0 Prolene followed by final approximation of the dermis using interrupted inverted 4-0 Monocryl and then completing this skin level closure with interrupted franny. The drains were connected to close bulb suction patent. Surgical cotter cleansed with saline dried postoperative bandages placed using Kerlix squares secured with 3 Medipore tape. The patient was awakened from anesthetic, extubated, and transferred to the recovery room in good condition with stable vital signs. ESTIMATED BLOOD LOSS: Was 40 mL. There were no complications. MMODL / IJN: [id number] /
[2018-08-15] MEDS: HYDROmorphone 1 MG/ML 1 ML SYRINGE IV PRN ×8 (00:05→21:55)
[2018-08-15] MEDS: ceFAZolin 1,000 MG in DEXTROSE/WATER 1 50ML.BAG IVPB SCH ×2 (00:06→05:54)
[2018-08-15] MEDS: DEXTROSE 5%-0.45% NACL 1,000 ML IV SCH ×2 (00:06→20:51)
[2018-08-15 07:23] LABS: Basophils % (A) 0 %; Eosinophils # (A) 0.1 k/uL (0-0.7); Eosinophils % (A) 1 %; HCT 33.5 % (34.0-46.0); Lymphocytes # (A) 1.1 k/uL (1.0-4.8); Lymphocytes % (A) 23 %; MCH 30.8 pg (25.0-35.0); MCHC 32.8 g/dL (31.0-37.0); MCV 93.7 fL (80.0-100.0); Mean Platelet Volume 8.4; Monocytes # (A) 0.2 k/uL (0-1.0); Monocytes % (A) 5 %; Neutrophils # (A) 3.4 k/uL (1.3-7.7); Neutrophils % (A) 70 %; Platelet Count 188 k/uL (150-450); RBC 3.58 m/uL (3.80-5.40); RDW 13.7 % (11.5-15.5); WBC 4.9 k/uL (3.8-10.6)
--- NOTE | 2018-08-15 07:43 | CONS ---
CONSULTATION DATE OF CONSULTATION: 08/14/2018 REASON FOR CONSULTATION: Medical management requested by Dr. Tammy Lee. CONSULTATION: This is a pleasant 48-year-old patient who follows with Dr. Nielsen out of [place]. 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 The patient is found to have breast cancer and underwent today right axillary node dissection, bilateral breast skin sparing mastectomy and bilateral immediate reconstruction. Estimated blood loss was 40 mL. Patient has good two drains on the right side and 1 drain on the left side. Some pain is present, no nausea vomiting. Patient's at the bedside. REVIEW OF SYSTEMS: CONSTITUTIONAL: None. HEENT: None. RESPIRATORY: Occasional wheezing. CARDIOVASCULAR: None. GASTROINTESTINAL: Heartburn. GENITOURINARY: None. MUSCULOSKELETAL: Arthritic pain in the joints in the hands. DERMATOLOGICAL: None HEMATOLOGICAL: None. LYMPHATIC: None. PSYCHIATRY: None. NEUROLOGICAL: None. PAST MEDICAL HISTORY: GERD, osteoarthritis of the hands, migraines, anemia in the past. PAST SURGICAL HISTORY: Breast surgery, , tubal ligation, uterine ablation. SOCIAL HISTORY: Smokes half to a pack a day for close to 20 years. No alcohol. Patient works at [employer]. Lives with her and kids. FAMILY HISTORY: Maternal grandmother with bilateral breast cancer. HOME MEDICATIONS: Percocet 10 one tablet q.6 p.r.n., vitamin C biotin 1 tablet p.o. b.i.d., Motrin 800 mg t.i.d. p.r.n. ALLERGIES: None. PHYSICAL EXAMINATION: Temperature 97, pulse 97, respiration 16, blood pressure 103/65, pulse ox 95% on 2 L. GENERAL APPEARANCE: Average build, sitting up, awake. EYES: Pupils equal, conjunctivae normal. HEENT: External appearance of nose and ears normal, oral cavity normal. NECK: JVD not raised, mass not palpable. RESPIRATORY: Effort normal. LUNGS: Decreased breath sounds, minimal wheezing. CARDIOVASCULAR: First and second sounds are normal. No edema. ABDOMEN: Soft, nontender. Liver and spleen not palpable. LYMPHATIC: No lymph node palpable in the neck, PSYCHIATRY: Alert and oriented x3. Mood and affect normal. CHEST WALL: Patient has got a dressing on both the sides with 2 drains on the right side, 1 on the left side. MUSCULOSKELETAL: Patient has evidence of swelling of the small joints of both the hands. ASSESSMENT: 1. Bilateral simple mastectomy with axillary lymph node dissection, right-sided reconstruction. 2. Gastroesophageal reflux disease. 3. 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 4. Chronic nicotine dependence, patient is a cigarette smoker. PLAN: Patient's pain control is in place per Dr. Tammy Lee, getting IV fluids. Awaiting Venodyne boots for DVT prophylaxis. Other home medications reviewed. Smoking cessation counseling. This was done with the patient and her . Will give a nicotine patch. I also told the patient that she could use a nicotine gum more than 3 minutes was spent on this aspect of the case. Thank you Dr. Tammy Lee. MMCHU / MARY: [id number] /
[2018-08-15] MEDS: HEPARIN SODIUM,PORCINE 5,000 UNIT/ML 1 ML VIAL SQ SCH ×2 (08:15→21:34)
--- NOTE | 2018-08-15 11:14 | P.PN ---
Subjective Progress Note Date: 08/15/18 Principal diagnosis: Postop day #1 right axillary dissection, bilateral skin sparing mastectomy, bilateral implant reconstruction The patient is a 48-year-old white female status post right axillary dissection , bilateral mastectomy, bilateral implant reconstruction. Postoperatively the patient has experienced some chest wall discomfort which is requiring IV Dilaudid for pain control. The patient is not nauseated and she is tolerating her diet without difficulty. The patient's hemoglobin is noted to be 11. The patient's REBECCA output is serous, REBECCA left breast 20 mL serosanguineous, right breast drain be which is axillary drain is 20 mL serosanguineous, drain a which is the breast drain is 30 mL which is slightly more sanguinous but serous in nature. Objective - Vital Signs Vital signs: Vital Signs Temp 98.2 F 08/15/18 09:12 Pulse 83 08/15/18 09:12 Resp 20 08/15/18 09:12 BP 110/71 08/15/18 09:12 Pulse Ox 97 08/15/18 09:12 Intake & Output 08/14/18 08/15/18 08/15/18 18:59 06:59 18:59 Intake Total 3750 2525 300 Output Total 1055 60 70 Balance 2695 2465 230 Weight 72.575 kg Intake: IV 3750 Intake, IV Titration 1100 Amount Dextrose 5%-0.45% NaCl 1, 1000 000 ml @ 100 mls/hr IV . Q10H ANNIE Rx#:[id number] ceFAZolin 1,000 mg In 100 Dextrose/Water 1 50ml.bag @ 100 mls/hr IVPB Q6HR ANNIE Rx#:[id number] Oral 1425 300 Output: Drainage 55 60 70 Left Breast 10 5 20 RIGHT BREAST DRAIN B 20 Right Lateral 5 25 right drain A 40 30 30 Urine 930 Estimated Blood Loss 70 Other: Voiding Method Toilet Toilet # Voids 1 1 - Constitutional General appearance: Present: average body habitus - EENT Eyes: Present: EOMI ENT: Present: hearing grossly normal - Neck Neck: Present: normal ROM - Respiratory Details: Some decreased breath sounds at the bases bilaterally Respiratory: bilateral: CTA - Cardiovascular Rhythm: regular Heart sounds: normal: S1, S2 - Gastrointestinal General gastrointestinal: Present: soft - Integumentary Integumentary Comment(s): Normal turgor Breast Incisions clean and dry bilateral, no evidence of infection or hematoma, axillary incision clean and dry - Musculoskeletal Musculoskeletal Comment(s): No evidence of any winging of the scapula on the right - Labs CBC & Chem 7: 08/15/18 07:11 Labs: Abnormal Lab Results - Last 24 Hours (Table) 08/15/18 Range/Units 07:11 RBC 3.58 L (3.80-5.40) m/uL Hgb 11.0 L (11.4-16.0) gm/dL Hct 33.5 L (34.0-46.0) % Assessment and Plan Assessment: Impression: 1. Postop day #1 bilateral mastectomy, bilateral implant reconstruction, right axillary node dissection 2. Hemoglobin 11, white count 4.9 3. Patient requiring Dilaudid for pain management 4. Tolerating diet Plan: 1. Continue present therapy 2. [place] for breakthrough pain
[2018-08-15] MEDS: HYDROcodone/APAP 5-325MG 1 EACH TAB PO PRN ×2 (13:29→19:52)
[2018-08-15 16:28] VITALS: RESP 16
[2018-08-15] MEDS: NICOTINE 21MG/24HR PATCH TRANSDERM SCH (20:51)
[2018-08-15] MEDS ORDERED: NICOTINE 21MG/24HR PATCH TRANSDERM SCH (21:00)
[2018-08-15] MEDS: LACTATED RINGERS 1,000 ML IV SCH (21:39)
--- NOTE | 2018-08-15 22:30 | PN ---
PROGRESS NOTE DATE OF SERVICE: 08/15/2018 PRESENTING COMPLAINT: Bilateral mastectomy. INTERVAL HISTORY: Patient is status post bilateral mastectomy, bilateral drains, some pain is present. Did tolerate a diet. Has not had a bowel movement. Has been out of bed. No fever or chills. at the bedside. Has occasionally used the inspiratory spirometer. REVIEW OF SYSTEMS: Done for constitutional, cardiovascular, GI, pulmonary and relevant findings as above. CURRENT MEDICATIONS: Reviewed that include subcu heparin, IV fluids. PHYSICAL EXAMINATION: VITAL SIGNS: Temperature 98.2, pulse 86, respirations 16, blood pressure 114/70, pulse ox 96% on room air. GENERAL APPEARANCE: Sitting up, awake. EYES: Pupils equal. Conjunctivae normal. NECK: JVD not raised. Mass not palpable. RESPIRATORY: Effort, lungs slightly decreased breath sounds. CARDIOVASCULAR: 1st and 2nd sounds normal. No edema. ABDOMEN: Soft, nontender. Liver and spleen not palpable. CHEST WALL: Bilateral dressing with drains present. PSYCHIATRY: Alert and oriented x3. Mood and affect normal. INVESTIGATIONS: White count 4.9, hemoglobin 11. ASSESSMENT: 1. Bilateral simple mastectomy with axillary lymph node dissection on the right side with reconstruction. 2. Gastroesophageal reflux disease. 3. 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 4. Chronic nicotine dependence, patient is a cigarette smoker. 5. Acute blood loss anemia expected from surgery. PLAN: Continue current medication and treatment plan. Patient encouraged to use inspiratory spirometer. The patient has been out of bed. Follow. MMODL / IJN: [id number] /
[2018-08-15 23:51] VITALS: TEMP 98.2
[2018-08-16] MEDS: HYDROmorphone 1 MG/ML 1 ML SYRINGE IV PRN ×3 (00:26→06:16)
[2018-08-16] MEDS: HYDROcodone/APAP 5-325MG 1 EACH TAB PO PRN ×2 (02:04→08:43)
--- NOTE | 2018-08-16 08:33 | P.PN ---
Subjective Progress Note Date: 08/16/18 Principal diagnosis: Postop day #2 right axillary dissection, bilateral skin sparing mastectomy, bilateral implant reconstruction The patient is a 48-year-old white female status post right axillary dissection , bilateral mastectomy, bilateral implant reconstruction. Postoperatively the patient has experienced some chest wall discomfort which is controlled with oral [place]. The patient is not nauseated and she is tolerating her diet without difficulty. The patient's REBECCA output is serous, REBECCA left breast 35 mL , right axillary drain is 25 mL , drain for the right breast breast drain is 40 mL which is . The patient wishes to be discharged today. Objective - Vital Signs Vital signs: Vital Signs Temp 98.2 F 08/15/18 23:04 Pulse 81 08/15/18 23:04 Resp 16 08/15/18 23:04 BP 113/71 08/15/18 23:04 Pulse Ox 92 L 08/15/18 23:04 Intake & Output 08/15/18 08/16/18 08/16/18 18:59 06:59 18:59 Intake Total 1400 750 Output Total 211 100 Balance 1189 650 Intake: Intake, IV Titration 800 Amount Dextrose 5%-0.45% NaCl 1, 800 000 ml @ 100 mls/hr IV . Q10H ANNIE Rx#:[id number] Oral 600 750 Output: Drainage 211 100 Left Breast 63 35 RIGHT BREAST DRAIN A ( 55 BREAST) RIGHT BREAST DRAIN B ( 63 25 AXILLA) Right Lateral 30 40 Other: Voiding Method Toilet # Voids 2 1 - Constitutional General appearance: Present: average body habitus - EENT Eyes: Present: EOMI ENT: Present: hearing grossly normal - Respiratory Details: Slightly decreased breath sounds at lung bases Respiratory: bilateral: CTA - Cardiovascular Rhythm: regular Heart sounds: normal: S1, S2 - Integumentary Integumentary Comment(s): Incision: Axillary clean and dry no evidence of hematoma or infection Incision: Bilateral breast clean and dry no evidence of infection Flaps appear to be viable with no evidence of infection REBECCA output is serous from all drains - Psychiatric Psychiatric: Present: A&O x's 3, appropriate affect, intact judgment & insight - Labs CBC & Chem 7: 08/15/18 07:11 Assessment and Plan Assessment: Impression: 1. Postop day #2 bilateral mastectomy, bilateral implant reconstruction, right axillary node dissection 2. Pain control with Berkey 3. Tolerating diet Plan: 1. Discharge home to be followed as an outpatient 2. Teach drain care 3. Follow-up with Dr. Lorenzana 1 week
--- NOTE | 2018-08-16 08:36 | P.DS ---
Providers Date of admission: 08/15/18 02:53 Attending physician: Ana Laura Lee Consults: 08/14/18 14:49 Consult Physician Routine Consulting Provider: Darian Stapleton Consult Reason/Comments: medical managment Do you want consulting provider notified?: Yes Primary care physician: Steven Hartley [facility] Course: Amanda is a 48-year-old white female who is POD #2 status post right axillary dissection, and bilateral skin sparing mastectomies with immediate implant reconstruction. She is doing well at this time. Her pain is controlled with [place]. She is tolerating her diet without difficulty. Her REBECCA output is serous from all drains. The patient is stable for discharge to be followed as an outpatient by Dr. Salomón Benton and DR. Zamora. Plan - Discharge Summary Discharge Rx Participant: Yes New Discharge Prescriptions: No Action oxyCODONE-APAP 10-325MG [Percocet 10-325 mg] 1 tab PO Q6HR PRN PRN Reason: Pain Vitamin C/Biotin [Hair, Skin and Nails] 1 tab PO BID Ibuprofen [Motrin] 800 mg PO TID PRN PRN Reason: Pain Discharge Medication List oxyCODONE-APAP 10-325MG [Percocet 10-325 mg] 1 tab PO Q6HR PRN 05/15/14 [History ] Vitamin C/Biotin [Hair, Skin and Nails] 1 tab PO BID 07/12/18 [History] Ibuprofen [Motrin] 800 mg PO TID PRN 08/09/18 [History] Follow up Appointment(s)/Referral(s): Ana Laura Lee MD [STAFF PHYSICIAN] - 1 Week Activity/Diet/Wound Care/Special Instructions: 1. Do not take Motrin at this time 2. May shower after [address] until seen by Dr. Lorenzana 4. Drain and record REBECCA output twice a day and as needed Discharge Disposition: HOME SELF-CARE
[2018-08-16] MEDS: HEPARIN SODIUM,PORCINE 5,000 UNIT/ML 1 ML VIAL SQ SCH (08:43)
[2018-08-16 09:10] VITALS: BP 117/68; PULSE 76
== END 2018-08-16 11:10 | disposition home or self-care (01) | DRG 580 ==
LOC: OR 07:10 → 6PED 14:41 → OR 08-15 00:50 → 6PED 08-15 02:53
PROVIDERS: ADMIT Surgery; ATTEND Surgery
PROC: 07T50ZZ Resection of Right Axillary Lymphatic, Open Approach (ICD-10-PCS; principal; 2018-08-14 08:35)
PROC: 0HTV0ZZ Resection of Bilateral Breast, Open Approach (ICD-10-PCS; 2018-08-14 08:35)
PROC: 0KXK0Z6 Transfer Right Abdomen Muscle, Transverse Rectus Abdominis Myocutaneous Flap, Open Approach (ICD-10-PCS; 2018-08-14 08:35)
PROC: 0KXL0Z6 Transfer Left Abdomen Muscle, Transverse Rectus Abdominis Myocutaneous Flap, Open Approach (ICD-10-PCS; 2018-08-14 08:35)
PROC: 0HHV0NZ Insertion of Tissue Expander into Bilateral Breast, Open Approach (ICD-10-PCS; 2018-08-14 08:35)
DX: C50.911 Malignant neoplasm of unspecified site of right female breast (principal); C77.3 Secondary and unspecified malignant neoplasm of axilla and upper limb lymph nodes; D62 Acute posthemorrhagic anemia; Z40.01 Encounter for prophylactic removal of breast; K21.9 Gastro-esophageal reflux disease without esophagitis; M19.041 Primary osteoarthritis, right hand; M19.042 Primary osteoarthritis, left hand; G43.909 Migraine, unspecified, not intractable, without status migrainosus; F17.210 Nicotine dependence, cigarettes, uncomplicated; Z71.6 Tobacco abuse counseling; Z79.899 Other long term (current) drug therapy; Z92.21 Personal history of antineoplastic chemotherapy; Z98.891 History of uterine scar from previous surgery; Z98.51 Tubal ligation status; Z80.3 Family history of malignant neoplasm of breast; Z83.2 Family history of diseases of the blood and blood-forming organs and certain disorders involving the immune mechanism
CPT/HCPCS: 81025; 85025; 88307

== ENCOUNTER → 2018-08-24 | Outpatient (CLI) | payer BC ==
[2018-08-24 13:43] VITALS: BP 124/54; PULSE 80; RESP 18; TEMP 97.5; BMI 26.6
--- NOTE | 2018-08-24 14:00 | P.PN ---
Progress Note - Text Progress Note Date: 08/24/18 Amanda is status post a bilateral mastectomy right axillary disection, and immediate reconstruction. The right breast lesion was 0.9 x 0.8 x 0.6 cm poorly differentiated infiltrating ductal carcinoma and right axillary contents 3 of 12 lymph nodes were positive for metastatic carcinoma, in the left breast no malignancy was identified. The patient has no complaints at this time related to the surgery. She has follow-up with radiation oncology and will begin treatment in approximately 5 weeks. She will follow with medical oncology as well. The tumor is at T1b N1a M0, following neoadjuvant chemotherapy. Physical examination: Lungs: Clear Heart: Regular rate and rhythm Bilateral chest wall sites incisions clean and dry no evidence of any infection REBECCA drains of been removed Axillary incision is clean and dry Impression: 1. [id number] Grade3 ER-, SC-, Her2- right breast cancer status post neoadjuvant chemotherapy 2. Follow-up medical oncology 3. Follow-up radiation oncology 4. Follow-up Dr. Cosme plastic surgery 5. Follow-up here in 3 weeks prior to return to work CC: DR. Nielsen
== END | disposition home or self-care (01) ==
LOC: WWCWWP 13:26
PROVIDERS: ATTEND Surgery
DX: Z53.9 Procedure and treatment not carried out, unspecified reason (principal)

== ENCOUNTER → 2018-09-14 | Outpatient (CLI) | payer BC ==
--- NOTE | 2018-09-14 14:58 | P.PN ---
Subjective Amanda is status post a bilateral mastectomy right axillary disection, and immediate reconstruction. The right breast lesion was 0.9 x 0.8 x 0.6 cm poorly differentiated infiltrating ductal carcinoma and right axillary contents 3 of 12 lymph nodes were positive for metastatic carcinoma, in the left breast no malignancy was identified. The patient has no complaints at this time related to the surgery. She has seen radiation oncology and will begin treatment in the near future. She will follow with medical oncology as well. The tumor is at T1b N1a M0, following neoadjuvant chemotherapy. Physical examination: Lungs: Clear Heart: Regular rate and rhythm Bilateral chest wall sites incisions clean and dry no evidence of any infection REBECCA drains of been removed Axillary incision is clean and dry Impression: 1. [id number] Grade3 ER-, CT-, Her2- right breast cancer status post neoadjuvant chemotherapy 2. Follow-up medical oncology 3. Follow-up radiation oncology done 4. Follow-up Dr. Cosme plastic surgery 5. Follow-up here in 3 months 6. Patient wishes to return to work will clear with plastic surgery CC: DR. Nielsen
[2018-09-14 15:03] VITALS: BP 122/81; PULSE 115; RESP 18; TEMP 98.2; BMI 27.1
== END | disposition home or self-care (01) ==
LOC: WWCWWP 14:40
PROVIDERS: ATTEND Surgery
DX: Z53.9 Procedure and treatment not carried out, unspecified reason (principal)

== ENCOUNTER → 2019-03-09 | Outpatient (CLI) | payer BC ==
--- NOTE | 2019-03-12 14:08 | PE ---
EXAMINATION TYPE: PET CT fusion skull to thigh DATE OF EXAM: 03/09/2019 COMPARISON: PET/CT dated 02/17/2018 HISTORY: Biopsy-proven multifocal right breast cancer. Subsequent exam. TECHNIQUE: Following the intravenous administration of 12.66 mCi of F-18 FDG, whole body images are performed from the skull base to the midthigh. Images are reviewed on the computer in the coronal, a xial, and sagittal planes. Reconstructed rotating images are created on independent workstation and reviewed on the computer. A localization and attenuation correction CT is performed in conjunction with the PET scan. SCAN: Subsequent FINDINGS: SKULL BASE AND NECK: No suspicious hypermetabolic uptake. CHEST, MEDIASTINUM, AND HILAR REGION: No suspicious hypermetabolic uptake. There has been surgical resection of the previously seen right axillary hypermetabolic lymph nodes wi th no suspicious hypermetabolic lymph nodes remaining. Lymph nodes do remain slightly enlarged with r ight paratracheal lymph node measuring 1.2 cm in short axis on series 3 image 78. Postsurgical changes with fat stranding and fibrosis are below mediastinal background. The previously seen right breast carcinoma has also been resected surgically with bilateral breast implants nondisp laced. ABDOMEN AND PELVIS: No suspicious hypermetabolic uptake. OSSEOUS STRUCTURES: No suspicious hypermetabolic uptake. OTHER CT: Paranasal sinuses and mastoid air cells appear well aerated. Thyroid gland is slightly hete rogenous without discrete measurable nodule. Bilateral breast implants are present. No pericardial ef fusion is seen. There are trace pleural effusions and bibasilar atelectasis. Nodular densities in the anterior right upper lobe could relate to atelectasis although short-term follow-up is recommended f or these would be below the threshold of PET CT as these measure up to 5 mm. There is a somewhat tree -in-bud appearance of the right middle lobe and underlying infectious etiologies possible. No hyperme tabolic uptake. Bandlike scarring is seen at the lung bases. The unenhanced liver, spleen, adrenal glands, and pancreas are of unremarkable morphology. Mild ather osclerosis is seen of the abdominal aorta and its branches. No hydronephrosis of either kidney. Nonen larged periaortic lymph nodes measure up to 5 mm in short axis on image 148 in the left periaortic re troperitoneal space. Numerous phleboliths are seen within the pelvis. Mild degree colonic fecal stasi s is seen without dilated large or small bowel. There are a few scattered colonic diverticula without pericolonic fat stranding. Osseous structures appear intact with no new suspicious osseous lesion se en. IMPRESSION: 1. Surgical resection of the previously seen multifocal right breast cancer with bilateral breast imp lants now in place. Biopsy-proven right axillary adenopathy has also been surgically resected with no residual suspicious enhancement in the axilla. Mildly enlarged mediastinal lymph nodes are seen with out hypermetabolic uptake. No new evidence of visceral or osseous metastasis within the chest, abdome n, or pelvis. 2. Nodular right middle lobe opacity does have a somewhat tree-in-bud appearance suggesting pneumonit is. Short-term follow-up is recommended in 3 months to ensure no underlying metastatic nodule.
== END | disposition home or self-care (01) ==
LOC: RADPETMAIN 07:37
PROVIDERS: ATTEND Internal Medicine Hematology & Oncology
DX: R91.8 Other nonspecific abnormal finding of lung field (principal); Z85.3 Personal history of malignant neoplasm of breast; Z90.11 Acquired absence of right breast and nipple
CPT/HCPCS: 78815; A9552

== ENCOUNTER → 2019-10-09 | Outpatient (CLI) | payer BC ==
--- NOTE | 2019-10-09 14:35 | XR ---
EXAMINATION TYPE: XR chest 2V DATE OF EXAM: 10/09/2019 COMPARISON: Prior chest x-ray 02/23/2018 HISTORY: Breast cancer, cough TECHNIQUE: Frontal and lateral views of the chest are obtained. FINDINGS: There is no focal air space opacity, pleural effusion, or pneumothorax seen. The cardiac silhouette size is within normal limits. Breast prostheses are present. Port-A-Cath has been removed. The osseous structures are intact. IMPRESSION: No acute cardiopulmonary process.
== END | disposition home or self-care (01) ==
LOC: RADXRMAIN 10:10
PROVIDERS: ATTEND Internal Medicine Hematology & Oncology
DX: C50.411 Malignant neoplasm of upper-outer quadrant of right female breast (principal); G89.29 Other chronic pain; R11.0 Nausea; Z71.3 Dietary counseling and surveillance
CPT/HCPCS: 71046

== ENCOUNTER → 2020-07-08 | Outpatient (CLI) | payer BC ==
--- NOTE | 2020-07-08 12:32 | CT ---
EXAMINATION TYPE: CT ChestAbdPelvis w con DATE OF EXAM: 07/08/2020 COMPARISON: Prior PET/CT March 09, 2019 and older study HISTORY: history bilat breast CA. looking for mets. Right-sided breast cancer diagnosed 2018. CT DLP: 1391 mGycm. Automated Exposure Control for Dose Reduction was Utilized. CONTRAST: CT scan of the thorax, abdomen and pelvis is performed with IV Contrast, patient injected with 100 mL of Isovue 300. FINDINGS: LUNGS: [id number] underlying emphysematous change. Anterior reticulation presumed fibrotic odom ge related and in the right lung. [id number] Linear scarring in both bases. No new nodules or m asses. No pleural effusion or pneumothorax. MEDIASTINUM: There are no new greater than 1 cm hilar or mediastinal lymph nodes. No cardiomegaly o r pericardial effusion is seen. OTHER: Bilateral subpectoral breast implants are redemonstrated. Some residual scar tissue in the ri ght axilla axial image 9. LIVER/GB: No significant abnormality is appreciated. PANCREAS: No significant abnormality is seen. SPLEEN: No significant abnormality is seen. ADRENALS: No significant abnormality is seen. KIDNEYS: Symmetrical visually uptake and excretion without hydronephrosis seen bilaterally. BOWEL: Oral contrast reaches level of the distal transverse colon. No suspicious small or large bowel dilatation. GENITAL ORGANS: Anteverted uterus. LYMPH NODES: No greater than 1cm abdominal or pelvic lymph nodes are appreciated. OSSEOUS STRUCTURES: Moderate disc space narrowing L4-L5 level with vacuum disc phenomenon. OTHER: No significant additional abnormality is seen. IMPRESSION: No suspicious new mass or adenopathy to suggest neoplastic recurrence.
--- NOTE | 2020-07-08 17:30 | NM ---
EXAMINATION TYPE: NM bone scan whole body DATE OF EXAM: 07/08/2020 COMPARISON: CT chest abdomen pelvis 06/30/2020. PET/CT 03/09/2019. HISTORY: Breast cancer Delayed whole-body scanning was performed following the injection of 25 mCi Tc 99m MDP. Images acqui red 3 hours post injection. FINDINGS: Asymmetric activity involving the right mandible. This area corresponds with a likely periapical absc ess of the right mandibular second molar on 03/09/2019 PET/CT comparison (series 3 image [id number]). There is symmetric bilateral uptake of the shoulders, sternoclavicular joints, knees, and feet. IMPRESSION: 1. No abnormal activity suspicious for metastatic breast cancer. 2. Activity of the right mandible corresponds with a likely periapical abscess on 03/09/2019 [address] co mparison. Findings are more likely related to dental disease than metastatic disease. Dental radiogra phs could be obtained for confirmation.
== END | disposition home or self-care (01) ==
LOC: RADNMMAIN 09:54
PROVIDERS: ATTEND Internal Medicine Hematology & Oncology
DX: C50.411 Malignant neoplasm of upper-outer quadrant of right female breast (principal)
CPT/HCPCS: 71260; 74177; 78306; A9503; Q9967